=== PATIENT | male | born 1985 | race Caucasian/White ===

== ENCOUNTER 2022-06-01 01:00 | Emergency (ER) | payer SELFPAY ==
[~2022-06-01] VITALS: Ht 170.2 cm; Wt 88.5 kg
[2022-06-01 01:00] VITALS: BP 155/100
--- NOTE | 2022-06-01 01:00 | NUR ---
VIOLETTA OLIVERA TO CHAIR B
--- NOTE | 2022-06-01 01:05 | NUR ---
SEEN AND EXAMINED BY YARA
--- NOTE | 2022-06-01 01:15 | NUR ---
PATIENT BIB [facility] DE[employer]. PATIENT EXAMINED BY DR. DE JESUS. PATIENT MEDICALLY CLEARED AND RELEASED IN CUSTODY IN STABLE CONDITION. ORIGINAL PRE-BOOK FORM GIVEN TO OFFICER SEBASTIAN #[id number].
[2022-06-01 01:24] VITALS: BP 155/100
== END 2022-06-01 01:15 ==
LOC: MED 01:00
DX: Z02.89 Encounter for other administrative examinations (principal); V89.2XXA Person injured in unspecified motor-vehicle accident, traffic, initial encounter; Y93.89 Activity, other specified; Y92.89 Other specified places as the place of occurrence of the external cause; Y99.8 Other external cause status
CPT/HCPCS: 99283